=== PATIENT | male | born 1965 | race Caucasian/White ===

== ENCOUNTER 2019-05-21 21:04 | Emergency (ER) | payer MEDICAID ==
[~2019-05-21] VITALS: Ht 162.6 cm; Wt 61.4 kg
[2019-05-21 21:07] VITALS: Ht 162.6 cm; Wt 61.4 kg
[2019-05-21] MEDS ORDERED: SOD CHLORIDE 0.9% 1,000 ML IV STA (21:25)
[2019-05-22] VITALS: BP 102/68; PULSE 74; RESP 16
== END 2019-05-22 00:12 | disposition home or self-care (01) ==
LOC: E/R 21:04
DX: S00.03XA Contusion of scalp, initial encounter (principal); F10.920 Alcohol use, unspecified with intoxication, uncomplicated; R40.2142 Coma scale, eyes open, spontaneous, at arrival to emergency department; R40.2252 Coma scale, best verbal response, oriented, at arrival to emergency department; R40.2362 Coma scale, best motor response, obeys commands, at arrival to emergency department; R42 Dizziness and giddiness; W18.30XA Fall on same level, unspecified, initial encounter; Y92.009 Unspecified place in unspecified non-institutional (private) residence as the place of occurrence of the external cause
CPT/HCPCS: 36415; 70450; 80053; 80307; 81003; 82150; 82962; 83690; 84484; 85025; 85610; 85730; 93005; J7030; Z7502